=== PATIENT | male | born 1940 | race Asian ===

== ENCOUNTER 2019-07-20 07:07 | Inpatient (IN) | payer OTHER ==
[~2019-07-20] VITALS: Ht 170.2 cm; Wt 74.6 kg
[~2019-07-20 07:07] MED LIST: AMLO10TA13 PO; HYDR25TA4 PO; LOSA-69 PO; NITR0.4S29 SL
[2019-07-20] MEDS ORDERED: IOHEXOL 350 MG/ML 100ML IJ ONE (07:25)
[2019-07-20] MEDS ORDERED: LIDOCAINE 2%HCL (LOCAL ANESTH.) INJ 20ML MDV ONE (07:25)
[2019-07-20] MEDS ORDERED: ANGIOMAX 250 MG VIAL IV ONE (07:58)
[2019-07-20] MEDS ORDERED: fentaNYL CITRATE 100 MCG/2 ML VL ONE (07:59)
[2019-07-20] MEDS ORDERED: MIDAZOLAM HCL 1MG/1ML-2 ML VIAL ONE (07:59)
[2019-07-20] MEDS ORDERED: SODIUM CHL 0.9% 50 ML ONE (07:59)
[2019-07-20] MEDS ORDERED: VERAPAMIL 2.5MG/ML INJ 2ML VIAL IV ONE (08:23)
[2019-07-20] MEDS ORDERED: diphenhdrAMINE HCL 50 MG/1 ML VL ONE (08:46)
[2019-07-20] MEDS ORDERED: ASPirin 325 MG TAB ONE (08:53)
[2019-07-20] MEDS ORDERED: TICAGRELOR 90 MG TAB ONE (08:53)
[2019-07-20] MEDS ORDERED: EPTIFIBATIDE INJ (2MG/ML) 10ML VIAL IV ONE (08:58)
[2019-07-20] MEDS ORDERED: NITROGLYCERIN 0.4 MG SL TAB SL PRN (09:00)
[2019-07-20] MEDS ORDERED: HYDROcodone-ACET 5/325MG TAB PO PRN (09:00)
[2019-07-20] MEDS ORDERED: ACETAMINOPHEN 500 MG TAB PO PRN (09:00)
[2019-07-20] MEDS ORDERED: NITROGLYCERIN 0.4 MG SL TAB SL SCH (09:00)
[2019-07-20] MEDS: MORPHINE SULF INJ 2 MG/ML SYRINGE 1ML IV PRN ×2 (09:47→10:18)
[2019-07-20] MEDS: amLODIPine BESYLATE 5 MG TAB PO SCH (09:51)
[2019-07-20] MEDS: HCTZ 25 MG TAB PO SCH (09:51)
[2019-07-20] MEDS: LOSARTAN POTASSIUM 50 MG TAB PO SCH (09:51)
[2019-07-20] MEDS ORDERED: SODIUM CHLORIDE 0.9% 1,000 ML IV ONE (10:00)
[2019-07-20] MEDS ORDERED: PATIENTS OWN MEDICATION (Amlodipine Besylate 1 TAB) PO SCH (10:00)
[2019-07-20 12:00] VITALS: BP 140/76
[2019-07-20 13:00] VITALS: BP 135/79
[2019-07-20 17:00] VITALS: BP 144/82
[2019-07-20] MEDS ORDERED: CLOPIDOGREL 300 MG TAB PO ONE (20:00)
[2019-07-20 22:00] VITALS: BP 121/73
[2019-07-21 05:00] VITALS: BP 139/75
[2019-07-21] MEDS ORDERED: ASPI81CH43 PO (06:39)
[2019-07-21] MEDS ORDERED: ATOR20TA50 PO (06:39)
[2019-07-21] MEDS ORDERED: CLOP75TA28 PO (06:39)
[2019-07-21 08:00] VITALS: BP 140/88
[2019-07-21 09:00] VITALS: BP 140/88
[2019-07-21] MEDS: LOSARTAN POTASSIUM 50 MG TAB PO SCH (09:34)
[2019-07-21] MEDS: amLODIPine BESYLATE 5 MG TAB PO SCH (09:34)
[2019-07-21] MEDS: HCTZ 25 MG TAB PO SCH (09:35)
[2019-07-21] MEDS ORDERED: ASPirin 81 mg TAB PO SCH (10:00)
[2019-07-21] MEDS ORDERED: CLOPIDOGREL BISULFATE 75 MG TAB PO SCH (10:00)
[2019-07-21 10:32] VITALS: BP 140/88
== END 2019-07-21 12:33 | disposition home or self-care (01) | DRG 247 ==
LOC: CATH 07:07 → TELE-WESTW 07:08
PROVIDERS: ADMIT Internal Medicine; ATTEND Internal Medicine
PROC: B211YZZ Fluoroscopy of Multiple Coronary Arteries using Other Contrast (ICD-10-PCS; principal; 2019-07-20)
PROC: 027034Z Dilation of Coronary Artery, One Artery with Drug-eluting Intraluminal Device, Percutaneous Approach (ICD-10-PCS; 2019-07-20)
DX: I20.9 Angina pectoris, unspecified (principal); Z79.899 Other long term (current) drug therapy
CPT/HCPCS: 92928; 92929; 93454; 99152; 99153; C1874; C1887; G0378; J2250

== ENCOUNTER 2021-02-17 10:24 | Inpatient (IN) | payer OTHER ==
[~2021-02-17] VITALS: Ht 170.2 cm; Wt 74.4 kg
[~2021-02-17 10:24] MED LIST changes: +AMLO-496 PO; -AMLO10TA13 PO; +ASPI81CH43 PO; +ATOR20TA50 PO; +CLOP75TA28 PO
[2021-02-17 11:47] LABS: Basophils # (auto) 0.1 10 ^3/uL (0-0.2); Basophils % (auto) 0.8 % (0.0-2.0); Eosinophils # (auto) 0.1 10 ^3/uL (0-0.8); Hematocrit 39.8 % (41.0-53.0); Hemoglobin 13.6 g/dL (13.5-17.5); Lymphocytes # (auto) 0.9 10 ^3/uL (0.4-5.4); Lymphocytes % (auto) 12.5 % (10.0-50.0); Mean Corpuscular Hemoglobin 32.7 pg (28.0-32.0); Mean Corpuscular Hgb Conc. 34.1 g/dL (32.0-36.0); Mean Corpuscular Volume 95.9 fL (80.0-100.0); Monocytes # (auto) 0.5 10 ^3/uL (0-1.3); Monocytes % (auto) 6.6 % (0.0-12.0); Neutrophils # (auto) 5.5 10 ^3/uL (1.6-8.6); Neutrophils % (auto) 78.1 % (37.0-80.0); Red Blood Cells 4.15 10^6/uL (4.5-5.90); Red Cell Distribution Width 13.4 % (11.8-14.3)
[2021-02-17 12:08] LABS: Potassium 4.2 mmol/L (3.5-5.1)
[2021-02-17 12:14] LABS: Albumin 3.6 g/dL (3.4-5.0); BUN/Creatinine Ratio 17.8; Bilirubin, Total 0.7 mg/dL (0.2-1.0); Calcium 8.6 mg/dL (8.5-10.1); Total Protein 7.4 g/dL (6.4-8.2)
[2021-02-17] MEDS ORDERED: ENOXAPARIN SOD 80 MG/0.8ML SYRINGE SC ONE (13:30)
[2021-02-17] MEDS ORDERED: HEPARIN SODIUM (PORCINE) 5000 UNITS/ML 1ML VIAL IV ONE (17:30)
[2021-02-17] MEDS ORDERED: ACETAMINOPHEN 325 MG TAB PO PRN (17:30)
[2021-02-17] MEDS ORDERED: HYDROcodone-ACET 5/325MG TAB PO PRN (17:30)
[2021-02-17] MEDS ORDERED: MORPHINE SULFATE INJECTION 2 MG/ML SYRG IV PRN (17:30)
[2021-02-17] MEDS ORDERED: DOCUSATE SOD 100 MG CAP PO PRN (17:30)
[2021-02-17] MEDS ORDERED: NITROGLYCERIN 0.4 MG SL TAB SL PRN (17:30)
[2021-02-17] MEDS: HEPARIN DRIP/D5W 100UNITS/ML 250 ML IV SCH (17:30)
[2021-02-17 19:13] LABS: INR 1.01 (0.9-1.15); Partial Thromboplastin Time 32.3 sec (23.6-33.0)
[2021-02-17 19:38] LABS: Cholesterol 122 mg/dL (< 200); Triglycerides 111 mg/dL (< 150)
[2021-02-17 19:40] LABS: HDL Cholesterol 44 mg/dL (40-59); LDL Cholesterol 66 mg/dL (< 100)
[2021-02-17] MEDS: METOPROLOL TARTRATE 25 MG TAB PO SCH (21:03)
[2021-02-17 22:00] VITALS: BP 157/81
[2021-02-17 23:20] LABS: INR 1.05 (0.9-1.15); Partial Thromboplastin Time 43.3 sec (23.6-33.0)
[2021-02-18 02:11] LABS: INR 1.06 (0.9-1.15); Partial Thromboplastin Time 51.4 sec (23.6-33.0)
[2021-02-18 05:00] VITALS: BP 134/79
[2021-02-18 08:00] VITALS: BP 146/72
[2021-02-18] MEDS: ASPirin 81 mg TAB PO SCH (08:34)
[2021-02-18] MEDS: ALLOPURINOL 100 MG TAB PO SCH (08:34)
[2021-02-18] MEDS: LOSARTAN POTASSIUM 50 MG TAB PO SCH (08:34)
[2021-02-18] MEDS: PANTOPRAZOLE 40 MG TAB PO SCH (08:35)
[2021-02-18] MEDS: CLOPIDOGREL BISULFATE 75 MG TAB PO SCH (08:35)
[2021-02-18] MEDS: METOPROLOL TARTRATE 25 MG TAB PO SCH ×2 (08:36→21:53)
[2021-02-18 08:45] LABS: Basophils # (auto) 0.1 10 ^3/uL (0-0.2); Basophils % (auto) 1.2 % (0.0-2.0); Eosinophils # (auto) 0.2 10 ^3/uL (0-0.8); Eosinophils % (auto) 2.4 % (0.0-7.0); Hematocrit 41.2 % (41.0-53.0); Lymphocytes # (auto) 1.1 10 ^3/uL (0.4-5.4); Lymphocytes % (auto) 16.2 % (10.0-50.0); Mean Corpuscular Hemoglobin 32.6 pg (28.0-32.0); Mean Corpuscular Hgb Conc. 34.1 g/dL (32.0-36.0); Mean Corpuscular Volume 95.7 fL (80.0-100.0); Monocytes # (auto) 0.5 10 ^3/uL (0-1.3); Monocytes % (auto) 6.9 % (0.0-12.0); Neutrophils % (auto) 73.3 % (37.0-80.0); Nucleated Red Blood Cells % 0.1 %; Red Blood Cells 4.31 10^6/uL (4.5-5.90); Red Cell Distribution Width 13.2 % (11.8-14.3); White Blood Cell 6.7 10^3/uL (4.4-10.8)
[2021-02-18 09:03] LABS: INR 1.02 (0.9-1.15); Partial Thromboplastin Time 59.5 sec (23.6-33.0)
[2021-02-18 09:04] LABS: BUN/Creatinine Ratio 16.3; Calcium 9.1 mg/dL (8.5-10.1)
[2021-02-18] MEDS ORDERED: amLODIPine BESYLATE 5 MG TAB PO SCH (10:00)
[2021-02-18 12:43] VITALS: BP 135/73
[2021-02-18 14:54] LABS: INR 1.02 (0.9-1.15); Partial Thromboplastin Time 57.5 sec (23.6-33.0)
[2021-02-18 16:42] VITALS: BP 141/80
[2021-02-18] MEDS: HEPARIN DRIP/D5W 100UNITS/ML 250 ML IV SCH ×2 (17:30→20:48)
[2021-02-18 22:00] VITALS: BP 134/74
[2021-02-18] MEDS ORDERED: ATORVASTATIN 20 MG TAB PO SCH (22:00)
[2021-02-19 05:00] VITALS: BP 143/75
[2021-02-19 05:57] LABS: Basophils # (auto) 0.2 10 ^3/uL (0-0.2); Basophils % (auto) 2.6 % (0.0-2.0); Eosinophils # (auto) 0.3 10 ^3/uL (0-0.8); Hemoglobin 13.6 g/dL (13.5-17.5); Lymphocytes # (auto) 1.2 10 ^3/uL (0.4-5.4); Lymphocytes % (auto) 21.3 % (10.0-50.0); Mean Corpuscular Hemoglobin 33.5 pg (28.0-32.0); Mean Corpuscular Volume 95.8 fL (80.0-100.0); Monocytes # (auto) 0.6 10 ^3/uL (0-1.3); Monocytes % (auto) 10.2 % (0.0-12.0); Neutrophils # (auto) 3.6 10 ^3/uL (1.6-8.6); Neutrophils % (auto) 60.9 % (37.0-80.0); Nucleated Red Blood Cells % 0.1 %; Red Blood Cells 4.07 10^6/uL (4.5-5.90); Red Cell Distribution Width 13.1 % (11.8-14.3); White Blood Cell 5.9 10^3/uL (4.4-10.8)
[2021-02-19 06:14] LABS: INR 1.01 (0.9-1.15); Partial Thromboplastin Time 68.6 sec (23.6-33.0)
[2021-02-19 06:31] LABS: BUN/Creatinine Ratio 19.2; Calcium 8.7 mg/dL (8.5-10.1); Potassium 4.2 mmol/L (3.5-5.1)
[2021-02-19 08:35] VITALS: BP 121/72
[2021-02-19] MEDS: ALLOPURINOL 100 MG TAB PO SCH (09:04)
[2021-02-19] MEDS: ASPirin 81 mg TAB PO SCH (09:04)
[2021-02-19] MEDS: LOSARTAN POTASSIUM 50 MG TAB PO SCH (09:05)
[2021-02-19] MEDS: METOPROLOL TARTRATE 25 MG TAB PO SCH ×3 (09:05→21:10)
[2021-02-19] MEDS: CLOPIDOGREL BISULFATE 75 MG TAB PO SCH (09:05)
[2021-02-19] MEDS: PANTOPRAZOLE 40 MG TAB PO SCH (09:06)
[2021-02-19] MEDS ORDERED: IODIXANOL 320MG/ML 100ML BTL IV ONE (10:54)
[2021-02-19] MEDS ORDERED: IOHEXOL 350 MG/ML 100ML IJ ONE (10:54)
[2021-02-19] MEDS ORDERED: HEPARIN IN NS 1000Units/500mL 1,500 ML ONE (10:55)
[2021-02-19] MEDS ORDERED: ANGIOMAX 250 MG VIAL IV ONE (11:48)
[2021-02-19] MEDS ORDERED: VERAPAMIL 2.5MG/ML INJ 2ML VIAL IV ONE (11:48)
[2021-02-19] MEDS ORDERED: HEPARIN SODIUM (PORCINE) 5000 UNITS/ML 1ML VIAL ONE (11:48)
[2021-02-19] MEDS ORDERED: SODIUM CHL 0.9% 50 ML ONE (11:49)
[2021-02-19] MEDS ORDERED: MIDAZOLAM HCL 2MG/2ML 2ml VIAL (1mg/ml) ONE (11:49)
[2021-02-19] MEDS ORDERED: fentaNYL CITRATE 100 MCG/2 ML VL ONE (11:49)
[2021-02-19] MEDS ORDERED: LIDOCAINE 2%HCL (LOCAL ANESTH.) INJ 20ML MDV ONE (12:10)
[2021-02-19] MEDS ORDERED: ATROPINE SULF 1 MG/10ml SYR ONE (12:31)
[2021-02-19] MEDS ORDERED: ASPirin 81 mg TAB ONE (12:56)
[2021-02-19] MEDS ORDERED: CLOPIDOGREL 300 MG TAB ONE (12:56)
[2021-02-19 17:00] VITALS: BP 134/76
[2021-02-19 22:00] VITALS: BP 121/67
[2021-02-19] MEDS ORDERED: ATORVASTATIN 20 MG TAB PO SCH (22:00)
[2021-02-20 05:00] VITALS: BP 130/70
[2021-02-20] MEDS: ALLOPURINOL 100 MG TAB PO SCH (08:24)
[2021-02-20 08:59] VITALS: BP 141/74
[2021-02-20] MEDS: PANTOPRAZOLE 40 MG TAB PO SCH (10:23)
[2021-02-20] MEDS: ASPirin 81 mg TAB PO SCH (10:24)
[2021-02-20] MEDS: CLOPIDOGREL BISULFATE 75 MG TAB PO SCH (10:25)
[2021-02-20] MEDS: LOSARTAN POTASSIUM 50 MG TAB PO SCH (10:25)
[2021-02-20] MEDS: METOPROLOL TARTRATE 25 MG TAB PO SCH (10:26)
[2021-02-20 13:00] VITALS: BP 135/75
[2021-02-20 13:42] LABS: Basophils # (auto) 0.1 10 ^3/uL (0-0.2); Eosinophils # (auto) 0.2 10 ^3/uL (0-0.8); Eosinophils % (auto) 3.1 % (0.0-7.0); Hematocrit 40.9 % (41.0-53.0); Lymphocytes # (auto) 1.1 10 ^3/uL (0.4-5.4); Mean Corpuscular Hemoglobin 33.3 pg (28.0-32.0); Mean Corpuscular Hgb Conc. 34.4 g/dL (32.0-36.0); Monocytes # (auto) 0.6 10 ^3/uL (0-1.3); Monocytes % (auto) 8.9 % (0.0-12.0); Nucleated Red Blood Cells % 0.2 %; Red Blood Cells 4.22 10^6/uL (4.5-5.90); Red Cell Distribution Width 13.2 % (11.8-14.3)
[2021-02-20 14:02] LABS: BUN/Creatinine Ratio 16.8; Calcium 8.6 mg/dL (8.5-10.1); Potassium 4.7 mmol/L (3.5-5.1)
[2021-02-20 14:03] LABS: Partial Thromboplastin Time 26.5 sec (23.6-33.0)
[2021-02-20 16:17] VITALS: BP 120/81
[2021-02-20 17:00] VITALS: BP 163/92
[2021-02-20] MEDS ORDERED: MET25T PO (17:48)
[2021-02-20] MEDS ORDERED: ATOR20TA50 PO (17:48)
[2021-02-20] MEDS ORDERED: CLOP75TA28 PO (17:48)
[2021-02-20] MEDS ORDERED: ASPI1CHW15 PO (17:48)
== END 2021-02-20 17:30 | disposition left against medical advice (07) | DRG 247 ==
LOC: ER 10:24 → TELE 17:38 → TELE-WESTW 19:30
PROVIDERS: ADMIT Internal Medicine; ATTEND Internal Medicine
PROC: B211YZZ Fluoroscopy of Multiple Coronary Arteries using Other Contrast (ICD-10-PCS; principal; 2021-02-19)
PROC: 027035Z Dilation of Coronary Artery, One Artery with Two Drug-eluting Intraluminal Devices, Percutaneous Approach (ICD-10-PCS; 2021-02-19)
PROC: 4A023N7 Measurement of Cardiac Sampling and Pressure, Left Heart, Percutaneous Approach (ICD-10-PCS; 2021-02-19)
DX: I21.4 Non-ST elevation (NSTEMI) myocardial infarction (principal); I25.10 Atherosclerotic heart disease of native coronary artery without angina pectoris; I10 Essential (primary) hypertension; E78.5 Hyperlipidemia, unspecified; M10.9 Gout, unspecified; I70.0 Atherosclerosis of aorta; Z20.822 Contact with and (suspected) exposure to COVID-19; Z95.5 Presence of coronary angioplasty implant and graft; Z83.3 Family history of diabetes mellitus; Z80.9 Family history of malignant neoplasm, unspecified; Z82.49 Family history of ischemic heart disease and other diseases of the circulatory system; Z79.82 Long term (current) use of aspirin; Z99.81 Dependence on supplemental oxygen; Z79.899 Other long term (current) drug therapy
CPT/HCPCS: 36415; 71045; 80048; 80053; 80061; 84484; 85025; 85610; 85730; 86850; 86900; 86901; 87426; 92928; 93005; 93306; 93458; 96372; 99152; 99153; C1874; C1887; G0378; J2250; Q9967

== ENCOUNTER 2022-03-24 07:33 | Emergency (ER) | payer MEDICARE, OTHER ==
[~2022-03-24] VITALS: Ht 170.2 cm; Wt 78.1 kg
[~2022-03-24 07:33] MED LIST changes: -AMLO-496 PO; +ASPI1CHW15 PO; -ASPI81CH43 PO; -HYDR25TA4 PO; +MET25T PO
[2022-03-24 07:51] VITALS: BP 192/94
[2022-03-24] MEDS ORDERED: diphenhdrAMINE HCL 50 MG/1 ML VL IM ONE (08:15)
[2022-03-24] MEDS ORDERED: methylPREDNISolone SOD SUCC 125 MG/2 ML VL IM ONE (08:15)
[2022-03-24] MEDS ORDERED: TRIA0.5O2 TOP (08:22)
[2022-03-24] MEDS ORDERED: CETI10TA2 PO (08:25)
== END 2022-03-24 08:44 | disposition home or self-care (01) ==
LOC: ER 07:33
DX: L50.8 Other urticaria (principal); I10 Essential (primary) hypertension; E78.5 Hyperlipidemia, unspecified
CPT/HCPCS: 96372; 99284; J1200; J2930